=== PATIENT | female | born 1990 | race Caucasian/White ===

== ENCOUNTER 2018-03-17 12:28 | Emergency (ER) | payer OTHER ==
[~2018-03-17] VITALS: Ht 172.7 cm; Wt 136.1 kg
[2018-03-17] MEDS ORDERED: POLYMYXIN B/TMP10 ML OPHTHALMIC (12:41)
[2018-03-17] MEDS ORDERED: AMOXICILLIN 50500 MG PO (12:41)
[2018-03-17 12:47] VITALS: BP 145/86
== END 2018-03-17 12:48 | disposition home or self-care (01) ==
LOC: M.ERS 12:28
DX: J06.9 Acute upper respiratory infection, unspecified (principal); H10.9 Unspecified conjunctivitis

== ENCOUNTER 2020-07-08 14:56 | Emergency (ER) | payer OTHER, MEDICAID ==
[~2020-07-08] VITALS: Ht 172.7 cm; Wt 145.2 kg
[~2020-07-08 14:56] MED LIST: AMOXICILLIN 50500 MG PO; POLYMYXIN B/TMP10 ML OPHTHALMIC
[2020-07-08] MEDS ORDERED: PNV 29-1 TABLE1 EACH PO (15:11)
[2020-07-08 15:20] LABS: URINE BILIRUBIN NEGATIVE (Negative); URINE BLOOD NEGATIVE (Negative); URINE COLOR YELLOW; URINE GLUCOSE-RANDOM NEGATIVE (Negative); URINE KETONES NEGATIVE (Negative); URINE LEUKOCYTES-REFLEX 1+ (Negative); URINE NITRITE-REFLEX NEGATIVE (Negative); URINE PROTEIN NEGATIVE (Negative); URINE SPECIFIC GRAVITY 1.025 (1.005-1.030); URINE UROBILINOGEN 0.2 E.U./dl (0.2-1.0)
[2020-07-08 15:21] LABS: URINE CLARITY HAZY
[2020-07-08 15:34] LABS: SQUAMOUS >10 Many /LPF (0-3); URINE WBC-REFLEX 0-5 Rare /HPF (0-5)
[2020-07-08 15:35] LABS: BACTERIA-REFLEX None Seen /HPF (None Seen); CASTS None Seen /LPF (None Seen); CRYSTALS None Seen /LPF (None Seen); URINE RBC None Seen /HPF (0-2)
[2020-07-08 15:37] LABS: ABSOLUTE BASOPHILS 0.1 thou/uL (0.0-0.2); ABSOLUTE EOSINOPHILS 0.5 thou/uL (0.0-0.7); ABSOLUTE LYMPHOCYTES 2.1 thou/uL (0.8-5.3); ABSOLUTE MONOCYTES 0.7 thou/uL (0.0-1.2); ABSOLUTE NEUTROPHILS 5.9 thou/uL (1.6-8.1); BASOPHILS 0.6 %; EOSINOPHILS 5.2 %; HEMATOCRIT 41.4 % (37.0-47.0); HEMOGLOBIN 14.1 gm/dL (12.0-15.0); LYMPHOCYTES 22.8 %; MCH 28.6 pg (26.0-34.0); MCHC 34.1 g/dL (28.0-37.0); MCV 83.8 fL (80.0-100.0); MONOCYTES 7.2 %; MPV 8.9 fl. (7.2-11.1); NUCLEATED RBCS 0 /100WBC; PLATELET COUNT* 237 thou/uL (150-400); POLYS 64.2 %; RBC 4.94 mil/uL (4.20-5.00); RDW-CV 15.4 % (10.5-14.5); WBC 9.2 thou/uL (4.0-11.0)
[2020-07-08 15:40] LABS: CALCIUM 8.8 mg/dL (8.5-10.1); CREATININE 0.9 mg/dL (0.6-1.3); POTASSIUM 4.1 mmol/L (3.5-5.1)
[2020-07-08 15:45] LABS: ALBUMIN 3.1 g/dL (3.4-5.0); TOTAL BILIRUBIN 0.4 mg/dL (<0.1-1.0); TOTAL PROTEIN 7.5 g/dL (6.4-8.2)
[2020-07-08 19:22] VITALS: BP 114/76
== END 2020-07-08 19:23 | disposition home or self-care (01) ==
LOC: M.ERS 14:56
PROVIDERS: Physician Assistant
DX: O20.0 Threatened abortion (principal); Z3A.01 Less than 8 weeks gestation of pregnancy; Z67.21 Type B blood, Rh negative; Z90.49 Acquired absence of other specified parts of digestive tract

== ENCOUNTER 2020-12-31 06:00 | Emergency (ER) | payer OTHER, MEDICAID ==
[~2020-12-31] VITALS: Ht 172.7 cm; Wt 154.2 kg
[~2020-12-31 06:00] MED LIST changes: +PNV 29-1 TABLE1 EACH PO
[2020-12-31] MEDS ORDERED: AMOXICILLIN875 MG PO (06:38)
[2020-12-31] MEDS ORDERED: PROAIR HFA8.5 GM INH (06:38)
[2020-12-31 06:45] VITALS: BP 151/102
== END 2020-12-31 06:45 | disposition home or self-care (01) ==
LOC: M.ERS 06:00
DX: J06.9 Acute upper respiratory infection, unspecified (principal); Z20.822 Contact with and (suspected) exposure to COVID-19; Z90.49 Acquired absence of other specified parts of digestive tract; Z79.899 Other long term (current) drug therapy

== ENCOUNTER 2021-01-21 16:54 | Emergency (ER) | payer OTHER, MEDICAID ==
[~2021-01-21] VITALS: Ht 182.9 cm; Wt 136.1 kg
[~2021-01-21 16:54] MED LIST changes: +AMOXICILLIN875 MG PO; +PROAIR HFA8.5 GM INH
[2021-01-21 17:39] VITALS: BP 145/89
== END 2021-01-21 17:49 | disposition home or self-care (01) ==
LOC: M.ERS 16:54
DX: M79.89 Other specified soft tissue disorders (principal); Z53.21 Procedure and treatment not carried out due to patient leaving prior to being seen by health care provider